=== PATIENT | male | born 1990 | race Caucasian/White ===

== ENCOUNTER 2017-02-28 23:06 | Emergency (ER) | payer OTHER ==
[2017-02-28] MEDS ORDERED: Clindamycin CAP* 150 MG PO ONE (23:58)
[2017-02-28] MEDS ORDERED: predniSONE TAB* 50 MG PO ONE (23:58)
[2017-02-28] MEDS ORDERED: diPHENhydraMINE PO* 50 MG PO ONE (23:58)
[2017-02-28] MEDS ORDERED: diPHENhydraMINE PO* 25 MG PO ONE (23:59)
[2017-02-28] MEDS ORDERED: HYDROcodone/ACETAMIN 5-325 MG* 1 TAB PO ONE (23:59)
--- NOTE | 2017-03-01 00:20 | ED ---
Throat Pain/Nasal Congestion - HPI Summary HPI Summary: Patient presents with right upper lid swelling and redness x 1 day. Hx of styes. He states this feels different and he has pain upon movement of the eye. Endorses ocular pain, eyelid swelling, and erythema. Denies visual disturbances. EOMI and SHEILA, conjunctiva clear. Swelling over the upper lid. Notes a 8/10 pain which is stabbing to the right of the eye. He notes some discomfort with eye movement to the left, denies pain with eye movement to the right. - History of Current Complaint Chief Complaint: EDEyeProblem Time Seen by Provider: 02/28/17 23:33 Hx Obtained From: Patient Onset/Duration: Sudden Onset Severity: Moderate - Epiglottits Risk Factors Epiglottis Risk Factors: Negative PMH/Surg Hx/FS Hx/Imm Hx Previously Healthy: Yes - Immunization History Hx Pertussis Vaccination: No Immunizations Up to Date: Unable to Obtain/Confirm Infectious Disease History: Denies: Traveled Outside the [place] in Last 30 Days - Social History Occupation: Employed Full-time Lives: With Family Alcohol Use: Occasionally Hx Substance Use: No Substance Use Type: Reports: None Hx Tobacco Use: No Smoking Status (MU): Never Smoked Tobacco Review of Systems Constitutional: Negative Positive: Other - upper eye lid swelling and erythema ENT: Negative Cardiovascular: Negative Respiratory: Negative Positive: Other - erythema and swelling over right upper lid not extending beyond the lid margin Neurological: Negative Psychological: Normal All Other Systems Reviewed And Are Negative: Yes Physical Exam Triage Information Reviewed: Yes Vital Signs On Initial Exam: Initial Vitals Temp Pulse Resp BP Pulse Ox 96.9 F 60 16 134/63 100 02/28/17 23:09 02/28/17 23:09 02/28/17 23:09 02/28/17 23:09 02/28/17 23:09 Vital Signs Reviewed: Yes Appearance: Positive: Well-Appearing, Well-Nourished Skin: Positive: Warm, Skin Color Reflects Adequate Perfusion Eyes: Positive: EOMI, SHEILA, Conjunctiva Clear, Other: - upper lid with erythema and swelling without swelling - [place] Coma Scale Coma Scale Total: 15 Diagnostics - Vital Signs Vital Signs Temp Pulse Resp BP Pulse Ox 02/28/17 23:09 96.9 F 60 16 134/63 100 - Laboratory Lab Statement: Any lab studies that have been ordered have been reviewed, and results considered in the medical decision making process. EENT Course/Dx - Course Course Of Treatment: No proptosis, no limitation of eye movements, slight pain with eye movements to the left, denies pain with eye movements to the right, denies double vision or any vision loss, no edema identified beyond the lid margin. Likely preseptal cellulitis from infected stye on upper lid margin. Unlikely orbital cellulitis d/t the above findings. Will treat with clindamycin to cover for staph infected cellulitis. Encouraged stye treatment and educated about cleansing eye. Prednisone and benadryl given for symptom relief and pain medication administered. Patient made aware of plan and is OK with discharge. Patient will follow up with PCP and return to ED IMMEDIATELY if symptoms become worse. Return precautions given, medications and side effects reviewed. - Differential Diagnoses Differential Diagnoses: Conjunctivitis, Other - PRESEPTAL CELLULITIS, ORBITAL CELLULITIS - Diagnoses Provider Diagnoses: Preseptal cellulitis of left upper eyelid Discharge - Discharge Plan Condition: Stable Disposition: HOME Prescriptions: Clindamycin Cap(NF) [Cleocin 300 mg Cap(NF)] 300 mg PO Q6H #20 cap HYDROcodone/ACETAMIN 5-325 MG* [[place] 5-325 TAB*] 1 tab PO Q4H PRN #6 tab MDD 6 PRN Reason: Pain HYDROcodone/ACETAMIN 5-325 MG* [[place] 5-325 TAB*] 1 tab PO Q4H PRN #12 tab MDD 6 PRN Reason: Pain predniSONE TAB* [Deltasone TAB*] 50 mg PO DAILY #4 tab MDD 1 Patient Education Materials: Stye (ED) Referrals: Non Staff,Doctor [Primary Care Provider] - Additional Instructions: warm compresses over the eye antibiotic ointment to the eye after warm compress and before bed prednisone 50mg daily in the morning for 4 days Benadryl 25 mg at night. Claritin d-12 during the daytime. this is over the counter. Pain medication only if ibuprofen is not improving symptoms. Clindamycin 300mg four times daily for 5 days If you develop visual disturbances, or any worsening pain or swelling, return to ED immediately. Images - Images Eyes: 1 - swelling with erythema
[2017-03-01 00:31] VITALS: BP 119/60
== END 2017-03-01 00:29 | disposition home or self-care (01) ==
LOC: ED 23:06
DX: H00.034 Abscess of left upper eyelid (principal)
CPT/HCPCS: 99281; A9270-GY; J7512

== ENCOUNTER 2017-11-30 10:39 | Emergency (ER) | payer OTHER ==
[2017-11-30 10:50] VITALS: BP 134/72
--- NOTE | 2017-11-30 11:31 | UC ---
FLU HPI - HPI Summary HPI Summary: 27 yo WM h/o URI x 1 week now p/w worsening cough associated with f/c/bodyaches and productive sputum - History of Current Complaint Chief Complaint: UCGeneralIllness Stated Complaint: COUGH, AND FEVER Time Seen by Provider: 11/30/17 11:05 Hx Obtained From: Patient Onset/Duration: Lasting Days, Still Present Severity Currently: Moderate Severity Initially: Moderate Pain Intensity: 7 Associated Signs & Symptoms: Positive: Fever, Myalgia, Cough, Sore Throat - Allergy/Home Medications Allergies/Adverse Reactions: Allergies Allergy/AdvReac Type Severity Reaction Status Date / Time sulfamethoxazole Allergy Unknown Verified 11/30/17 10:50 [From Bactrim] Reaction Details trimethoprim [From Bactrim] Allergy Unknown Verified 11/30/17 10:50 Reaction Details PMH/Surg Hx/FS Hx/Imm Hx - Additional Past Medical History Additional PMH: none Previously Healthy: Yes - Social History Alcohol Use: Occasionally Substance Use Type: None Smoking Status (MU): Never Smoked Tobacco Review of Systems Constitutional: Fever, Chills, Fatigue Skin: Negative Eyes: Negative ENT: Negative Respiratory: Cough Cardiovascular: Negative Gastrointestinal: Negative Genitourinary: Negative Motor: Negative Neurovascular: Negative Musculoskeletal: Myalgia Neurological: Negative Psychological: Negative All Other Systems Reviewed And Are Negative: Yes Physical Exam Triage Information Reviewed: Yes Vital Signs: Initial Vital Signs Temp 36.7 C 11/30/17 10:45 Pulse 62 11/30/17 10:45 Resp 18 11/30/17 10:45 BP 134/72 11/30/17 10:45 Pulse Ox 100 11/30/17 10:45 Eye Exam: Normal ENT Exam: Normal Dental Exam: Normal Neck exam: Normal Neck: Positive: 1 Respiratory Exam: Normal Respiratory: Positive: No respiratory distress, Rhonchi Cardiovascular Exam: Normal Abdominal Exam: Normal Musculoskeletal Exam: Normal Musculoskeletal: Positive: Other: - diffise muscle aches/tenderness Neurological Exam: Normal Psychological Exam: Normal Skin Exam: Normal Flu Course/Dx - Course Course Of Treatment: Rapid flu positive for Flu B. Influenza with superimposed secondary bronchitis - Differential Dx/Diagnosis Differential Diagnosis/HQI/PQRI: Bronchitis, Influenza, Upper Respiratory Infection Provider Diagnoses: Bronchitis. Influenza like illness Discharge - Discharge Plan Condition: Stable Disposition: HOME Prescriptions: Azithromycin TAB* [Zithromax TAB (Z-PATITO) 250 mg #6 tabs] 2 tab PO .TODAY, THEN 1 DAILY #1 patito Guaifenesin/Dextromethorphan [Mucinex Dm ER 600-30 mg Tablet] 1 each PO BID 10 Days #20 tab.er.12h Oseltamivir CAP* [Tamiflu CAP*] 75 mg PO BID 5 Days #10 cap Patient Education Materials: Acute Bronchitis (ED), Influenza (ED) Referrals: No Primary Care Phys,NOPCP [Primary Care Provider] - Additional Instructions: take medication as directed, go to ER if symptoms worsen
== END 2017-11-30 11:56 | disposition home or self-care (01) ==
LOC: UCEAST 10:39
DX: J11.1 Influenza due to unidentified influenza virus with other respiratory manifestations (principal); Z88.3 Allergy status to other anti-infective agents; Z88.2 Allergy status to sulfonamides
CPT/HCPCS: 87502; 99212; G0463

== ENCOUNTER 2018-10-02 11:47 | Emergency (ER) | payer OTHER ==
[2018-10-02] MEDS ORDERED: NS 0.9% 1000 ML* 1,000 ML IV ONE (12:09)
--- NOTE | 2018-10-02 12:10 | ED ---
HPI Chest Pain - HPI Summary HPI Summary: 28 yo male presents with generalized fatigue and weakness. He tells me that about 3 days ago he felt more tired than usual. Yesterday developed a headache and nausea. This is not uncommon for him as he gets migraines frequently. He took norco for his headache and experienced a rebound headache soon after. He went to bed earlier than usual last night. This morning woke up and had some left sided chest pain, which concerned him and has been intermittently dull since. His headache and nausea are much improved this morning, but still feels very tired. He does have a hx of anxiety and about 2 weeks ago was placed on prozac. 4 days ago he increased his dose to 20mg from 10mg. His symptoms started the next day. He denies fever, vision changes, dizziness, trouble speaking, SOB, palpitations, abdominal pain, vomiting, diarrhea, dysuria. - History of Current Complaint Chief Complaint: EDChestPainROMI Time Seen by Provider: 10/02/18 12:08 Hx Obtained From: Patient Initial Severity: Mild Current Severity: Mild Pain Intensity: 4 Pain Scale Used: 0-10 Numeric - Allergy/Home Medications Allergies/Adverse Reactions: Allergies Allergy/AdvReac Type Severity Reaction Status Date / Time sulfamethoxazole Allergy Unknown Verified 10/02/18 11:53 [From Bactrim] Reaction Details trimethoprim [From Bactrim] Allergy Unknown Verified 10/02/18 11:53 Reaction Details Home Medications: Home Medications FLUoxetine* [PROzac*] 10 mg PO DAILY 10/02/18 [History Confirmed 10/02/18] Ibuprofen TAB* [Motrin TAB* 600 MG] 600 mg PO Q8H PRN 10/02/18 [History Confirmed 10/02/18] PMH/Surg Hx/FS Hx/Imm Hx Endocrine/Hematology History: Denies: Hx Blood Disorders, Hx Diabetes, Hx Thyroid Disease Cardiovascular History: Denies: Hx Hypertension Respiratory History: Denies: Hx Asthma, Hx Chronic Obstructive Pulmonary Disease (COPD) GI History: Denies: Hx Gastroesophageal Reflux Disease, Hx Ulcer Neurological History: Denies: Hx CVA, Hx Seizures Psychiatric History: Reports: Hx Anxiety, Hx Depression Infectious Disease History: No Infectious Disease History: Denies: Hx Hepatitis, Hx Human Immunodeficiency Virus (HIV), Traveled Outside the [place] in Last 30 Days - Family History Known Family History: Positive: None - Social History Occupation: Employed Full-time Lives: With Family Alcohol Use: Occasionally Hx Substance Use: No Substance Use Type: Reports: None Hx Tobacco Use: No Smoking Status (MU): Never Smoked Tobacco Review of Systems Positive: Fatigue Eyes: Negative ENT: Negative Positive: Chest Pain Respiratory: Negative Positive: Nausea Genitourinary: Negative Skin: Negative Positive: Headache Psychological: Normal All Other Systems Reviewed And Are Negative: Yes Physical Exam - Summary Physical Exam Summary: GENERAL: NAD. WDWN. No pain distress. SKIN: No rashes, sores, ulcers, masses, lesions. HEENT: Head: AT/NC. No raccoon eyes or battles sign. Eyes: PERRLA. EOM intact. Conjunctiva clear without inflammation or discharge. Ears: Hearing grossly normal. TMs intact, no bulging, erythema, or edema. Nose: Nasal mucosa pink and moist. NTTP maxillary and frontal sinus. Throat: Posterior oropharynx without exudates, erythema, or tonsillar enlargement. Uvula midline. NECK: Supple. Nontender. No lymphadenopathy. CHEST: CTAB. No r/r/w. No accessory muscle use. Breathing comfortably and in no distress. CV: RRR. Without m/r/g. Pulses intact. Brisk cap refill. ABDOMEN: Soft. NTTP. No distention or guarding. No CVA tenderness. Bowel sounds present MSK: FROM in B/L UEs and LEs with symmetric strength. NEURO: A&Ox3. 3 word recall, remote, recent memory, ability to follow 2-step directions, and attention intact. CN: II: Peripheral richardson intact. Vision normal. III, IV, : EOMI. No nystagmus. PERRLA. V: Sensations intact and symmetric. Opens mouth and clenches teeth. VII: No facial asymmetry. Forehead wrinkles. Grins, shuts eyes, frowns, puffs cheeks. VIII: Hearing intact to finger rub. IX, X: Swallows and coughs. Uvula midline. XI: Shrugs shoulders. Turns head against resistance. XII: No tongue deviation [id number] are intact. Gait with normal base. Romberg: maintains balance, no pronator drift. Normal speech. No facial drooping. PSYCH: Age appropriate behavior. Triage Information Reviewed: Yes Vital Signs On Initial Exam: Initial Vitals Temp Pulse Resp BP Pulse Ox 97.2 F 66 16 145/74 98 10/02/18 11:49 10/02/18 11:49 10/02/18 11:49 10/02/18 11:49 10/02/18 11:49 Laboratory Tests 10/02/18 10/02/18 10/02/18 12:54 12:54 12:54 WBC 7.0 RBC 5.36 Hgb 16.2 Hct 46 MCV 86 MCH 30 MCHC 35 RDW 12 Plt Count 273 MPV 8.5 Neut % (Auto) 58.9 Lymph % (Auto) 24.7 Upson % (Auto) 9.8 Eos % (Auto) 6.1 Baso % (Auto) 0.5 Absolute Neuts (auto) 4.1 Absolute Lymphs (auto) 1.7 Absolute Monos (auto) 0.7 Absolute Eos (auto) 0.4 Absolute Basos (auto) 0 Absolute Nucleated RBC 0.1 Nucleated RBC % 0.9 D-Dimer, Quantitative < 200 Sodium 138 Potassium 4.2 Chloride 108 Carbon Dioxide 24 Anion Gap 6 BUN 22 Creatinine 1.04 Est GFR ( Amer) 104.5 Est GFR (Non-Af Amer) 86.3 BUN/Creatinine Ratio 21.2 H Glucose 91 Lactic Acid Calcium 9.6 Magnesium 2.0 Total Bilirubin 0.50 AST 23 ALT 37 Alkaline Phosphatase 52 CK-MB (CK-2) 2.5 Troponin I 0.00 Total Protein 6.8 Albumin 4.3 Globulin 2.5 Albumin/Globulin Ratio 1.7 10/02/18 12:54 WBC RBC Hgb Hct MCV MCH MCHC RDW Plt Count MPV Neut % (Auto) Lymph % (Auto) Upson % (Auto) Eos % (Auto) Baso % (Auto) Absolute Neuts (auto) Absolute Lymphs (auto) Absolute Monos (auto) Absolute Eos (auto) Absolute Basos (auto) Absolute Nucleated RBC Nucleated RBC % D-Dimer, Quantitative Sodium Potassium Chloride Carbon Dioxide Anion Gap BUN Creatinine Est GFR ( Amer) Est GFR (Non-Af Amer) BUN/Creatinine Ratio Glucose Lactic Acid 1.0 Calcium Magnesium Total Bilirubin AST ALT Alkaline Phosphatase CK-MB (CK-2) Troponin I Total Protein Albumin Globulin Albumin/Globulin Ratio Vital Signs Reviewed: Yes Diagnostics - Vital Signs Vital Signs Temp Pulse Resp BP Pulse Ox 10/02/18 11:49 97.2 F 66 16 145/74 98 - Laboratory Result Diagrams: 10/02/18 12:54 10/02/18 12:54 Lab Statement: Any lab studies that have been ordered have been reviewed, and results considered in the medical decision making process. Re-Evaluation - Re-Evaluation First Eval Re-Evaluation Time: 13:34 Comment: Pt sleeping comfortably on stretcher Second Eval Re-Evaluation Time: 13:57 Change: Improved Comment: Pt awake. Improved. No more headache. Feeling better overall Chest Pain Course/Dx - Course Course Of Treatment: EKbpm NSR. No ST changes as read by Dr. Rodriguez. CT: IMPRESSION: 1. NO EVIDENCE FOR ACUTE INTRACRANIAL ABNORMALITY. 2. PANSINUSITIS. CXR: IMPRESSION: NO ACTIVE CARDIOPULMONARY DISEASE. HEART score 0. Pt's headache improved after compazine, fluids, benadryl, and toradol. He wishes to be discharged at this time. Given his negative workup and low-risk for cardiac event, he will be discharged with instructions to f/u with his PCP or with [facility] within 1 week for a recheck. I discussed with him that these symptoms could be related to his recent increase in Prozac and advised to f/u with his PCP to discuss dosing/tapering of this medication. Will treat him for a sinus infection, which could be exacerbating his headaches. Pt voiced understanding and is in agreement with the plan. - Diagnoses Provider Diagnoses: Migraine, Chest pain, Anxiety Discharge - Sign-Out/Discharge Documenting (check all that apply): Patient Departure - Discharge Plan Condition: Stable Disposition: HOME Prescriptions: Amoxicillin PO (*) [Amoxicillin 875 MG (*)] 875 mg PO BID #14 tab Patient Education Materials: Chest Pain (DC), Sinusitis (ED), Migraine Headache (ED) Referrals: Scott Reed MD [Primary Care Provider] - 1 Week Additional Instructions: If you develop a fever, shortness of breath, chest pain, new or worsening symptoms - please call your PCP or go to the ED. Your blood pressure was mildly elevated at todays visit. Please see your primary provider within 4 weeks for recheck and re-evaluation. - Billing Disposition and Condition Condition: STABLE Disposition: Home
[2018-10-02] MEDS ORDERED: Ketorolac INJ* 30 MG/ML 1 ML VIAL IV PUSH ONE (12:31)
[2018-10-02] MEDS ORDERED: diPHENhydraMINE IV* 50 MG/ML 1 ml VIAL (BENADRYL) IV ONE (12:31)
[2018-10-02] MEDS ORDERED: PROCHLORPERAZINE INJ 5 MG/ML 2 ML VIAL IV ONE (12:31)
[2018-10-02 13:23] LABS: ABS Basophils 0 10^3/ul (0-0.2); ABS Eosinophils 0.4 10^3/ul (0-0.6); ABS Lymphocytes 1.7 10^3/ul (1.0-4.8); ABS Monocytes 0.7 10^3/ul (0-0.8); ABS Neutrophils 4.1 10^3/ul (1.5-7.7); ABS Nucleated RBC 0.1 10^3/ul; Eosinophil % 6.1 %; Hematocrit 46 % (42-52); Hemoglobin 16.2 g/dl (14.0-18.0); Lymphocyte % 24.7 %; Mean Corpuscular HGB Conc 35 g/dl (31-36); Mean Corpuscular Hemoglobin 30 pg (27-31); Mean Corpuscular Volume 86 fL (80-94); Mean Platelet Volume 8.5 fL (7.4-10.4); Nucleated Red Blood Cells % 0.9; Platelet Count 273 10^3/ul (150-450); Red Blood Count 5.36 10^6/ul (4.00-5.40); Red Cell Distribution Width 12 % (10.5-15)
[2018-10-02 13:34] LABS: Albumin 4.3 g/dL (3.2-5.2); Albumin/Globulin Ratio 1.7 (1-3); BUN/Creatinine Ratio 21.2 (8-20); Calcium 9.6 mg/dL (8.6-10.3); EGFR Non-African American 86.3 (>60); Globulin 2.5 g/dL (2-4); Potassium 4.2 mmol/L (3.5-5.0); Total Bilirubin 0.5 mg/dL (0.2-1.0); Total Protein 6.8 g/dL (6.4-8.9)
[2018-10-02 14:29] VITALS: BP 105/56
== END 2018-10-02 14:29 | disposition home or self-care (01) ==
LOC: ED 11:47
DX: G43.909 Migraine, unspecified, not intractable, without status migrainosus (principal); R07.9 Chest pain, unspecified; F41.9 Anxiety disorder, unspecified; Z88.2 Allergy status to sulfonamides; F32.9 Major depressive disorder, single episode, unspecified
CPT/HCPCS: 36415; 70450; 71045; 80053; 82553; 83605; 83735; 84484; 85025; 85379; 93005; 96361; 96374; 96375; 99283; J0780; J1200; J1885